=== PATIENT | male | born 1980 | race African-American/Black ===

== ENCOUNTER 2018-02-13 18:35 | Emergency (ER) | payer OTHER ==
[2018-02-13] MEDS: METOCLOPRAMIDE INJ 10MG/2ML VIAL (J2765) IV (20:34)
[2018-02-13] MEDS: diphenhydrAMINE INJ 50MG/ML VIAL (J1200) IV (20:34)
[2018-02-13] MEDS: NS 1,000 ML IV (20:34)
[2018-02-13 20:43] LABS: HEMATOCRIT 50.7 % (42.0-52.0); HEMOGLOBIN 15.2 g/dl (13.5-17.5); MEAN CORPUSCULAR HEMOGLOBIN 23.7 pg (27.0-33.0); PLATELET COUNT, AUTOMATED 303 10^3/uL (150-450); RED BLOOD COUNT 6.42 10^6/uL (4.30-6.10); RED CELL DISTRIBUTION WIDTH 14.7 % (11.5-14.5); WHITE BLOOD COUNT 6.9 10^3/uL (4.0-10.0)
[2018-02-13 21:03] LABS: ANION GAP 8 MEQ/L (8-16); BLOOD UREA NITROGEN 9 MG/DL (7-18); CALCIUM LEVEL 8.6 MG/DL (8.5-10.1); CARBON DIOXIDE LEVEL 28 MEQ/L (21-32); CHLORIDE LEVEL 107 MEQ/L (98-107); CREATININE FOR GFR 1.09 MG/DL (0.70-1.30); GLOMERULAR FILTRATION RATE > 60.0 (>60); GLUCOSE, FASTING 86 MG/DL (70-100); POTASSIUM SERUM 4.1 MEQ/L (3.5-5.1); SODIUM LEVEL 143 MEQ/L (136-145)
== END 2018-02-13 22:06 | disposition home or self-care (01) ==
LOC: M ED 18:35
DX: R51 Headache (principal)
CPT/HCPCS: J1200

== ENCOUNTER 2020-08-28 13:21 | Emergency (ER) | payer OTHER ==
[~2020-08-28] VITALS: Ht 185.4 cm; Wt 97.9 kg
[~2020-08-28 13:21] MED LIST: REGL10TA6 PO
[2020-08-28] MEDS ORDERED: IBUP-1022 PO (13:32)
--- NOTE | 2020-08-28 14:19 | REP ---
INDICATION: PAIN COMPARISON: None. TECHNIQUE: Internal rotation, external rotation, and Y view. FINDINGS: No acute fracture or dislocation. The acromioclavicular and glenohumeral joints are intact. No periarticular calcifications or degenerative changes are appreciated. Sub acromial space is normal. Surrounding soft tissues are unremarkable. IMPRESSION: Normal age-appropriate right shoulder radiographs. <Electronically signed by Lonnie Marsh > 08/28/20 [id number]
[2020-08-28] MEDS ORDERED: ACETAMINOPHEN 325 MG TAB PO ONE (15:30)
[2020-08-28 16:06] VITALS: BP 132/88
== END 2020-08-28 16:19 | disposition home or self-care (01) ==
LOC: M ED 13:21
DX: M25.511 Pain in right shoulder (principal)